=== PATIENT | male | born 2000 | race Caucasian/White ===

== ENCOUNTER 2020-07-07 01:08 | Emergency (ER) | payer MEDICAID, SELFPAY ==
[2020-07-07 01:09] VITALS: BP 162/99; PULSE 76; RESP 16; TEMP 36.2; O2SAT 97; BMI 29.1
--- NOTE | 2020-07-07 01:18 | ED.VIS.GEN ---
History of Present Illness Chief Complaint: Dental Narrative: This patient is a 19-year-old male who presents with dental pain. He complains of pain in one of his left upper teeth for the last several days. No fevers nausea vomiting. He has tried ibuprofen with little relief. He does not have a dentist. He denies any medical history or daily medications. Past Medical History - Allergies and Home Meds Allergies/Adverse Reactions: Allergies amoxicillin Adverse Reaction (Verified 07/07/20 01:11) Nausea/Vom/Diarrhea Past Medical History: None Smoking Status: Current every day smoker Review of Systems All systems negative except as indicated General: Denies: Fever Eyes: Denies: Visual changes - bilaterally ENT: Reports: - - Dental pain. Denies: Bilateral ear pain Cardiovascular: Denies: Chest pain Respiratory: Denies: Dyspnea Gastrointestinal: Denies: Vomiting, Diarrhea Musculoskeletal: Denies: Myalgias, Arthralgias Skin: Denies: Rash Neurological: Denies: Headache Physical Exam Vital Signs/Narrative: Vital Signs Temp Pulse Resp BP Pulse Ox 07/07/20 01:09 97.1 F L 76 16 162/99 H 97 Inital Vital Signs reviewed: Yes General: Well nourished, Well developed Head: Normocephalic Eyes: EOMI ENT: Moist mucous membranes, - - Patient has focal dental decay and tenderness on percussion of the left maxillary first molar he does not have a focal abscess amenable to incision and drainage, he has no trismus, he has no facial swelling Neck: Supple Skin: Normal color Neurological: Alert Psychological: Normal affect Diagnostic/Tx/Re-eval - Medical Decision Making Patient prescribed naproxen and clindamycin and given first doses of each here. He was given a list of dental clinics for outpatient follow-up. Patient discharged. ED Disposition - Plan for ED Patient: Disposition: Home or Assisted Living Diagnosis: Odontalgia Instructions: ED Dental Pain Prescriptions: Clindamycin HCl [Cleocin] 300 mg PO Q8H #30 cap Prescription Printed Naproxen [Naprosyn] 500 mg PO BID #20 tab Prescription Printed
[2020-07-07] MEDS: Clindamycin HCl 150 MG Capsule 300 MG PO (01:31)
[2020-07-07] MEDS: Naproxen 500 MG Tablet PO (01:31)
== END 2020-07-07 01:33 | disposition home or self-care (01) ==
LOC: ED 01:30
PROVIDERS: Emergency Provider Emergency Medicine
DX: K02.9 Dental caries, unspecified (principal); K08.89 Other specified disorders of teeth and supporting structures; F17.200 Nicotine dependence, unspecified, uncomplicated
CPT/HCPCS: 99283